=== PATIENT | female | born 1990 | race Asian ===

== ENCOUNTER 2019-07-11 16:47 | Outpatient (CLI) | payer BC ==
[2019-07-13 08:12] LABS: ESTRADIOL 29.9 pg/mL (.); FOLLICLE STIMULATION HORMONE 6.4 mIU/mL (.); LUETENIZING HORMONE 4.5 mIU/mL (.); PROGESTERONE <0.1 ng/mL (.); TESTOSTERONE, TOTAL SERUM 11 ng/dL (8-48)
== END 2019-07-11 21:24 | disposition home or self-care (01) ==
LOC: SLB 16:47
PROVIDERS: ATTEND Internal Medicine
DX: N92.6 Irregular menstruation, unspecified (principal)
CPT/HCPCS: 36415; 82670; 83001; 83002; 84144; 84403

== ENCOUNTER 2019-07-12 16:01 | Outpatient (CLI) | payer OTHER | END 2019-07-12 19:02 | disposition home or self-care (01) | LOC: SUS 16:01 | PROVIDERS: ATTEND Internal Medicine | DX: E04.2 Nontoxic multinodular goiter (principal); E04.9 Nontoxic goiter, unspecified | CPT/HCPCS: 76536-TC ==

== ENCOUNTER 2019-07-16 11:11 | Outpatient (CLI) | payer OTHER ==
[2019-07-16 11:41] LABS: BASOPHILS # (AUTO) 0.1 K/uL (0.0-0.2); BASOPHILS % (AUTO) 0.7 % (0.0-2.0); EOSINOPHILS # (AUTO) 0.2 K/uL (0.0-0.4); EOSINOPHILS % (AUTO) 2.1 % (0.0-4.0); HEMATOCRIT 36.7 % (36-48); HEMOGLOBIN 12.3 g/dL (12.0-16.0); LYMPHOCYTES # (AUTO) 2.7 K/uL (1.0-5.5); LYMPHOCYTES % (AUTO) 27.8 % (20.5-51.5); MEAN CORPUSCULAR HEMOGLOBIN 28 pg (27-31); MEAN CORPUSCULAR HGB CONC 33 % (32-36); MEAN CORPUSCULAR VOLUME 84 fL (79.0-98.0); MONOCYTES # (AUTO) 0.6 K/uL (0.0-1.0); NEUTROPHILS # (AUTO) 6.3 K/uL (1.8-7.7); NEUTROPHILS % (AUTO) 63.4 % (40.0-70.0); PLATELET COUNT (AUTO) 347 K/uL (130-430); RED BLOOD CELL COUNT(AUTO) 4.39 MIL/uL (4.2-6.2); RED CELL DISTRIBUTION WIDTH 12.9 % (9.0-15.0); WHITE BLOOD COUNT (AUTO) 9.9 K/uL (4.8-10.8)
[2019-07-16 11:45] LABS: BILIRUBIN,URINE NEGATIVE (NEGATIVE); BLOOD, URINE NEGATIVE (NEGATIVE); CLARITY/URINE CLEAR (CLEAR); COLOR,URINE YELLOW (YELLOW); GLUCOSE,URINE NEGATIVE (NEGATIVE); KETONES,URINE NEGATIVE (NEGATIVE); LEUKOCYTE ESTERASE ,URINE NEGATIVE (NEGATIVE); NITRITE, URINE NEGATIVE (NEGATIVE); PROTEIN URINE NEGATIVE (NEGATIVE); UROBILINOGEN,URINE 0.2 (0.2-1.0)
[2019-07-16 12:08] LABS: PROTHROMBIN TIME 9.8 SECS (9.5-12.5)
[2019-07-16 12:23] LABS: ALBUMIN 3.5 g/dL (3.4-4.8); CALCIUM 8.5 mg/dL (8.4-11.0); CREATININE 0.61 mg/dL (0.55-1.30); POTASSIUM 4.4 mmol/L (3.5-5.1); THYROID STIMULATING HORMONE 3.2 uIu/mL (0.36-3.74); TOTAL BILIRUBIN 0.2 mg/dL (0.0-1.0)
[2019-07-16 12:46] LABS: ERYTHROCYTE SEDIMENTATION RATE 27 MM/HR (0-20)
[2019-07-17 08:08] LABS: HEMOGLOBIN A1C 5.4 % (4.8-5.6)
== END 2019-07-17 20:51 | disposition home or self-care (01) ==
LOC: SLB 11:11
PROVIDERS: ATTEND Internal Medicine
DX: Z00.00 Encounter for general adult medical examination without abnormal findings (principal)
CPT/HCPCS: 36415; 80053; 80061; 81003; 82306; 82607; 83036; 84443-TC; 84703; 85025; 85610-TC; 85651-TC; 85730-TC